=== PATIENT | female | born 1950 | race Caucasian/White ===

== ENCOUNTER 2021-04-25 07:47 | Outpatient (CLI) | payer MEDICARE, SELFPAY ==
--- NOTE | ~2021-04-25 | MR_ITS ---
EXAMINATION: MR knee LT wo con DATE: 04/25/2021 08:54 INDICATION: Primary osteoarthritis of the left knee. TECHNIQUE: Magnetic resonance imaging (MRI) of the left knee was performed without intravenous contra st. Sequences included coronal PD-weighted FSE, coronal PD-weighted FS FSE, sagittal T2-weighted FSE , sagittal PD-weighted FS FSE and axial PD weighted fat saturated FSE. COMPARISON: Left knee radiographs dated 12/04/2020 FINDINGS: Medial compartment: Medial extrusion of the medial meniscal body. Longitudinal horizontal tear which extends to the super ior articular surface along the inner third of the body and posterior horn of the medial meniscus. Ex tensive partial thickness cartilage loss with chondral surface irregularity along the anterior, centr al and to lesser degree posterior weightbearing medial femoral condyle without degenerative subchondr al changes. Additional partial thickness cartilage loss with chondral surface regularity at the centr al, anterior and medial aspect of the medial tibial plateau. Minimal subarticular increased marrow si gnal change along the anteromedial rim of the medial tibial plateau. Small marginal osteophytes are p resent. Lateral compartment: Small radial tear involving the inner third of the body of the lateral meniscus. In addition there ap pears be a small displaced flap of meniscus which extends into the medially between the anterior and posterior horns of the intercondylar eminence consistent with a displaced bucket-handle tear. Partial -thickness chondral fissuring along the anterior to posterior weightbearing lateral femoral condyle w ithout degenerative subchondral changes. Deep chondral ulceration with tiny central subchondral osteo phyte along the posterior medial aspect of the lateral tibial plateau. Patellofemoral compartment: Deep chondral ulceration with small central subchondral osteophytes at the cephalad aspect of the tro chlear groove and medial trochlea. Less severe partial thickness chondral fissuring along the lateral margin of the lateral trochlea. Partial thickness cartilage loss with scattered chondral surface irr egularity throughout the patella. Ligaments and tendons: The posterior cruciate ligament is normal. Prominent thickening and increased intrasubstance signal s urrounding the low signal intensity ligament fibers of the anterior cruciate ligament consistent with mucoid degeneration. Some of the ligament fibers appear relatively taut following a normal course re lative to the mid sagittal plane however there appears to be some laxity to the fibers of the postero lateral bundle suggesting partial tear. There is prominent chronic erosion with low signal intensity sclerotic margins underlying the footplate of the posterolateral bundle. The medial collateral ligame nt and fibular collateral ligament complex are normal. The extensor mechanism is normal. The visualiz ed medial and lateral hamstring tendons as well as the iliotibial band are normal. Fluid: Small left knee joint effusion. No loose osteochondral bodies identified. Osseous/other: Bone alignment is normal. No fracture or pathologic marrow replacing process. IMPRESSION: 1. Medial and lateral meniscal tears likely complex at the lateral meniscus suggestion of a small wit h medially displaced bucket-handle flap. 2. Mucoid degeneration of the anterior cruciate ligament with suggestion of at least partial tear of some of the fibers of the posterior medial bundle which appears lax and with large erosion underlying its femoral footplate. 3. Tricompartmental osteoarthritis, moderate in the medial and mild in the lateral and patellofemoral compartments, each with regions of moderate to high-grade chondromalacia. 4. Small left knee joint effusion. Reviewed, dictated and finalized at location A. Electr
== END 2021-04-25 07:48 | disposition home or self-care (01) ==
PROVIDERS: PCP Nurse Practitioner; Visit Provider Orthopaedic Surgery
DX: M17.0 Bilateral primary osteoarthritis of knee (principal); M25.462 Effusion, left knee; S83.282A Other tear of lateral meniscus, current injury, left knee, initial encounter; S83.242A Other tear of medial meniscus, current injury, left knee, initial encounter; X58.XXXA Exposure to other specified factors, initial encounter
CPT/HCPCS: 73721

== ENCOUNTER 2021-07-09 07:46 | Outpatient (CLI) | payer MEDICARE, SELFPAY ==
--- NOTE | 2021-07-09 08:00 | ECG_ITS ---
Measurements Intervals [place] Rate: 78 P: 53 PA: 154 QRS: -5 QRSD: 74 T: 48 QT: 361 QTc: 412 Interpretive Statements SINUS RHYTHM LOW QRS VOLTAGE IN PRECORDIAL LEADS [QRS DEFLECTION < 1.0 mV IN CHEST LEADS] BORDERLINE ECG NO PREVIOUS ECG AVAILABLE FOR COMPARISON Electronically Signed On 07-09-2021 12:20:59 CDT by Abdoulaye Loyola M.D.
== END 2021-07-09 07:47 | disposition home or self-care (01) ==
PROVIDERS: PCP Nurse Practitioner; Visit Provider Orthopaedic Surgery
DX: I10 Essential (primary) hypertension (principal); Z01.818 Encounter for other preprocedural examination
CPT/HCPCS: 93005

== ENCOUNTER → 2021-07-10 01:39 | Outpatient (CLI) | payer MEDICARE, SELFPAY ==
[2021-07-10 11:26] LABS: SARS-CoV-2 RNA PCR Negative
== END ==
PROVIDERS: PCP Nurse Practitioner; Visit Provider Orthopaedic Surgery
DX: Z01.812 Encounter for preprocedural laboratory examination (principal); Z20.822 Contact with and (suspected) exposure to COVID-19
CPT/HCPCS: C9803; U0003; U0005

== ENCOUNTER 2021-07-13 00:27 | Day surgery (SDC) | payer MEDICARE, SELFPAY ==
[2021-07-05 10:37] VITALS: BMI 24.1
--- NOTE | 2021-07-05 10:52 | PC.NURSE ---
Report to the Outpatient Waiting Room, entrance under the green pavilion located off [facility], at time _8:30AM on date __07/13/21 . OR Time: __10:30AM . - You and your visitor will be asked a series of questions to screen for COVID 19 for your protection. - A mask is required within the hospital. Preoperative COVID Testing Requirements: No COVID Test needed if: (proof is required; if not received patient will have Rapid Test prior to entry) - Patient has received COVID Vaccine at least 14 days prior to procedure date or - Patient has positive COVID test result within last 90 days of surgery date. COVID Test needed if above criteria is not met If not COVID vaccinated a COVID test must be conducted within 72 hours of surgery and patient is asked to isolate self from time of testing until procedure. You will go to the [facility] for your COVID testing. The [facility] is located at the corner of [address] [facility]. You will only be called if COVID results are positive and your surgeon may reschedule your elective surgery date. Patients may have clear liquids (water, carbonated beverages, clear teas, apple juice) until 3 hours prior to surgery with a maximum of 20 ounces. - No food from midnight until time of surgery - Infants may have breast milk until 4 hours before surgery, formula 6 hours prior to surgery. - Children will be allowed to drink immediately following surgery. If applicable, please bring a bottle or sippy cup to assist with drinking. Juice, water, soda, and popsicles are readily available. For infants on formula, please bring formula the day of surgery. Pacifiers are allowed. Take the following medications with a SIP of water the morning of surgery: ___NONE Medications to discontinue per physician ___ALL VITAMINS/SUPPLEMENTS 3 DAYS PRE-OP Date to take last dose____07/09/21 Please no make-up, nail welsh, hairspray, perfume, deodorant, or body powder the day of surgery. No jewelry (including any body piercings) or valuables the day of surgery, leave them at home. Please take a shower or bath the night before, or the morning of, surgery with an antibacterial soap. Wear comfortable, loose fitting clothing. Children are encouraged to wear pajamas. - Jewelry must be removed prior to entering the operating room. Rings and piercings that are not removed may be cut off. - The hospital will not accept responsibility for valuables. - Please leave all valuables, including medications, at home the day of surgery. If you are going home after surgery, a licensed deliver driver must drive you home. - NO public transportation without another adult. - We recommend that an adult stay with you for 24 hours following discharge. - We also recommend that you do not drive, make important decision, drink alcoholic beverages, or take any drugs that were not prescribed by your health care provider for at least 24 hours after your discharge time. For Pediatric surgeries, we recommend two adults accompany the child home (only one inside the building at this time). One visitor will be allowed to accompany the patient into the hospital. Patients visitor will be instructed to remain with patient at all times or leave the building. We will allow the visitor to come back to the postoperative area when patient is ready. Follow any additional instructions given to you from your surgeon. Telephone instructions given to __PATIENT and asked if any additional questions and then verbalized understanding. Patient advised to call surgeon office or pre surgery nurse liaison [phone] if any additional questions.
[2021-07-13] VITALS (9 sets, daily range): BP systolic 126–151; BP diastolic 50–96; PULSE 76–86; RESP 12–20; TEMP 36.1–36.7; O2SAT 98–100
--- NOTE | 2021-07-13 07:19 | WPDHPUPDATE1 ---
History and Physical Update Update Date/Time: 07/13/21 07:19 History and Physical has been reviewed, including an updated exam of the patient. There are NO changes in the patient's condition. Risks, benefits, and alternatives have been discussed and questions answered. Patient agrees to proceed with procedure.
--- NOTE | 2021-07-13 12:36 | P.PNAN_ITS ---
Anes - Initial Pre Proc Eval Procedure: Operation Date: 07/13/21 13:00 Proposed Procedures p Left Knee Arthroscopic Partial Medial and Lateral Meniscectomy - Jadiel Bolivar MD Date/Time: 07/13/21 12:36 Surgeon: Jadiel Bolivar MD Pre Op Diagnosis: Lt Medial and Lateral Meniscus Tear Patient Data Age: 71 Gender: F Height: 1.7 m Weight: 68.5 kg Last Vital Signs Temp 36.7 C 07/13/21 10:49 Pulse 86 07/13/21 10:49 Resp 18 07/13/21 10:49 BP 150/91 H 07/13/21 10:49 Pulse Ox 99 07/13/21 10:49 Allergies Allergy/AdvReac Type Severity Reaction Status Date / Time No Known Allergies Allergy Verified 07/13/21 11:22 Home Medications Medication Instructions Recorded Confirmed Type lisinopril 20 mg tablet 20 mg PO QAM 08/14/20 07/13/21 History Quercetin 500 mg PO DAILY 07/05/21 07/13/21 History ascorbic acid (vitamin C) 500 mg PO BID 07/05/21 07/13/21 History cholecalciferol (vitamin D3) 125 mcg PO DAILY 07/05/21 07/13/21 History coenzyme Q10 [Co Q-10] 200 mg PO DAILY 07/05/21 07/13/21 History cyanocobalamin (vitamin B-12) 5,000 mcg PO DAILY 07/05/21 07/13/21 History ivermectin See Rx Instructions .ROUTE .COMPLEX 07/05/21 07/13/21 History melatonin 6 mg PO HS 07/05/21 07/13/21 History azlsiuv-nynn-tpvtb-oreg-capryl 1 cap PO TID 07/05/21 07/13/21 History zinc picolinate 30 mg PO DAILY 07/05/21 07/13/21 History Patient hx anesthesia problems: none Family hx anesthesia problems: none Results Review: All pre-operative results and documents have been reviewed as part of the pre-operative evaluation. [facility] Social History Social History Smoking status: Never smoker Alcohol intake: current Drinks per week: 7 Substance use: never Living arrangements: with family Additional living arrangements comments: HUSB AND DAUGHTER Spiritual care concerns: No Anes - Eval Final PreProcedure Day of Procedure 07/13/21 12:36 Patient weight: normal Heart: regular rate and rhythm Lungs: clear to auscultation Airway: Mallampati scale class II Neurological: alert and oriented Last oral intake: >/= 8 hours ASA classification: II Emergent: no Anesthetic plan: proceed Anesthesia type and monitoring: general LMA and standard monitoring Results Review: All pre-operative results and documents have been reviewed as part of the pre-operative evaluation. Informed Consent: The patient's anesthetic plan and its attendant risks and benefits were discussed with the patient/family/POA. Questions were solicited and answers provided to the satisfaction of the patient/family/POA.
[2021-07-13] MEDS: ceFAZolin 2 GM/D5W 50 ML 2 GM/50 ML BAG IVPB (13:09)
[2021-07-13] MEDS: LACTATED RINGERS 1,000 ML 30 ML IV CONT ×2 (13:57)
--- NOTE | 2021-07-13 15:40 | P.OP_ITS ---
Procedure Note - Detailed Date of Procedure 07/13/21 Pre-op Diagnosis Lt Medial and Lateral Meniscus Tear Post-op Diagnosis Same Procedure Performed Arthroscopic partial medial and lateral meniscectomy Surgeon Jadiel Bolivar MD Mechanical Manager Erinn Souza PA-C Anesthesia General Findings Degenerative tearing of the medial meniscus. The tissue was quite friable and significant meniscectomy through the posterior medial aspect posterior horn and medially was performed. The lateral meniscus had a modest tear. Medial femur chondromalacia grade 4, medial tibia grade 4. Lateral femur chondromalacia grade 1, lateral tibia grade 1. Patellar grade 3, trochlea grade 3. Description of Procedure The patient was identified and the surgical site confirmed and signed in the preoperative holding area. Antibiotics were started per protocol. She was brought to the operative room and transferred to the OR table. A general anesthetic was administered. Supine position with the operative lower extremity position in the leg reyez after placement of a well padded tourniquet. The leg support was lowered and the contralateral limb was supported with a soft bolster. The knee was prepped and draped in the usual sterile fashion. A time-o ut was performed. The portal sites were marked and infiltrated with 0.5% Marcaine 20 mL. The limb was exsanguinated and the tourniquet inflated to 300 mL Hg. Standard inferolateral and inferomedial portals were established. Inflow was obtained with the saline pump. The camera was introduced. Diagnostic inspection of the joint was accomplished. The menisci were debrided with the arthroscopic shaver and punches until stable. The arthroscopic instruments were removed. The tourniquet released and wounds closed with subcutaneous 4-0 Monocryl absorbable suture. Steri strips and a sterile dressing were applied. A light elastic wrap was placed. The patient was extubated and brought to the recovery room in stable condition. Estimated Blood Loss -5.0 Drains No Complications No immediate complications Condition Stable Disposition PACU
== END 2021-07-13 15:35 | disposition home or self-care (01) ==
PROVIDERS: PCP Nurse Practitioner; Visit Provider Orthopaedic Surgery
PROC: (CPT 29870; principal; 2021-07-13 13:00)
DX: M23.222 Derangement of posterior horn of medial meniscus due to old tear or injury, left knee (principal); M23.201 Derangement of unspecified lateral meniscus due to old tear or injury, left knee; M22.42 Chondromalacia patellae, left knee; M25.562 Pain in left knee; M17.12 Unilateral primary osteoarthritis, left knee
CPT/HCPCS: 29880; J0690; J1100; J2250; J2405; J2704; J3010; J7120

== ENCOUNTER 2022-01-04 13:56 | Outpatient (CLI) | payer MEDICARE, SELFPAY ==
--- NOTE | ~2022-01-04 | CT_ITS ---
EXAMINATION: CT LE LT wo con DATE: 01/04/2022 15:07 INDICATION: Left knee osteoarthritis. Chronic left knee pain. TECHNIQUE: Computed tomography (CT) of the left lower limb was performed without intravenous contrast . Automated exposure control and iterative reconstruction technique were employed. The dose-length pr oduct was 1754.45 mGy-cm. COMPARISON: Left knee radiographs 12/06/2021 FINDINGS: There is moderate left hip osteoarthritis. Left knee demonstrates normal bone alignment. No fracture. There is moderate osteoarthritis of medial compartment and mild osteoarthritis of lateral and patellofemoral compartments. There is a moderate-sized knee joint effusion. IMPRESSION: 1. Moderate left knee osteoarthritis. 2. Moderate-sized left knee joint effusion. 3. Moderate left hip osteoarthritis. Reviewed, dictated and finalized at location A.
--- NOTE | 2022-01-04 13:58 | ECG_ITS ---
Measurements Intervals [place] Rate: 67 P: 23 ND: 142 QRS: 13 QRSD: 73 T: 68 QT: 402 QTc: 425 Interpretive Statements SINUS RHYTHM ATRIAL PREMATURE COMPLEX BASELINE WANDER- I, II BORDERLINE ECG COMPARED TO ECG 07/09/2021 07:59:53 NO SIGNIFICANT CHANGES Electronically Signed On 01-04-2022 14:37:17 CDT by Kuldip Espana D.O.
[2022-01-04 14:32] LABS: Hematocrit 41.1 % (37.0-47.0); Hemoglobin 13.4 g/dL (12.0-15.0)
[2022-01-04 14:41] LABS: Albumin Level 4.2 g/dL (3.5-5.1); Estimated Glomerular Filt Rate > 60
== END 2022-01-04 13:57 | disposition home or self-care (01) ==
LOC: ANHIMG 13:58
PROVIDERS: PCP Nurse Practitioner; Visit Provider Orthopaedic Surgery
DX: M17.12 Unilateral primary osteoarthritis, left knee (principal); M25.462 Effusion, left knee; M16.12 Unilateral primary osteoarthritis, left hip
CPT/HCPCS: 36415; 73700; 82040; 82565; 85014; 85018; 93005

== ENCOUNTER 2022-02-25 11:53 | Outpatient (CLI) | payer MEDICARE, SELFPAY ==
[2022-02-25 13:20] LABS: Basophils Percent Auto 0.6 % (0.2-1.2); Eosinophils Absolute Auto 0.4 K/mm3 (0-0.3); Eosinophils Percent Auto 5.7 % (0-4.4); Hemoglobin 13.8 g/dL (12.0-15.0); Immature Granulocyte Absolute 0.03 K/mm3 (0.00-0.031); Immature Granulocyte Percent A 0.5 % (0-0.5); Lymphocytes Absolute Auto 1.59 K/mm3 (0.9-3.2); Lymphocytes Percent Auto 25.2 % (18.3-44.2); Mean Corpuscular HGB Conc 32.9 g/dl (32-36); Mean Corpuscular Hemoglobin 31.2 pg (26-34); Mean Corpuscular Volume 94.8 fl (80-100); Mean Platelet Volume 9.5 fl (7.4-10.4); Monocytes Absolute Auto 0.5 K/mm3 (0.1-0.6); Monocytes Percent Auto 8.6 % (2.6-8.5); Neutrophils Absolute Auto 3.8 K/mm3 (1.3-6.7); Neutrophils Percent Auto 59.4 % (45.5-73.1); Platelet Count Result 255 k/mm3 (150-375); Red Blood Count 4.43 M/mm3 (4.2-5.4); Red Cell Distribution Width 12.8 % (11.5-14.5); White Blood Count 6.3 K/mm3 (4.5-10.0)
[2022-02-25 13:37] LABS: Albumin Level 4.5 g/dL (3.5-5.1); Estimated Glomerular Filt Rate > 60; Glucose 97 mg/dL (65-110)
[2022-02-25 13:50] LABS: Urine Cotinine NEGATIVE
[2022-02-25 14:02] LABS: Hemoglobin A1C 5.3 % (<5.7)
== END 2022-02-25 11:54 | disposition home or self-care (01) ==
LOC: ANHSURGERY 11:58
PROVIDERS: PCP Nurse Practitioner; Visit Provider Orthopaedic Surgery
DX: M17.12 Unilateral primary osteoarthritis, left knee (principal); Z01.818 Encounter for other preprocedural examination
CPT/HCPCS: 80307; 82040; 82565; 82947; 83036; 85025; 87081

== ENCOUNTER 2022-03-14 01:19 | Day surgery (SDC) | payer MEDICARE, SELFPAY ==
[2022-02-25 12:11] VITALS: BP 151/82; PULSE 72; RESP 16; TEMP 36.2; O2SAT 97; BMI 24.3
--- NOTE | 2022-02-25 12:21 | PC.NURSE ---
Addendum entered by Faviola Del Valle RN 02/25/22 12:29: HOLD ALL ASPIRIN 7 DAYS KS-OP PER DR MOODY, LAST DOSE 03/07/22. PT RELAYS UNDERSTANDING. Original Note: Report to the Outpatient Waiting Room, entrance under the green pavilion located off [facility], at time __6:00AM on date __03/14/22 . Planned Procedure Time: __7:30AM . Time changes happen often and if your time is changed the preop area will call you the afternoon before. - You and your visitor will be asked to self-screen and do not enter if you have any COVID symptoms. - We encourage only one visitor and NO visitors under age 16 are allowed at this time. Your visitor will receive communication by the phone number that is given day of service. - The patient visitor is requested to social distance or may leave the building when not with patient due to restrictions. - A mask is required within the hospital. Patients may have clear liquids (water, carbonated beverages, clear teas, apple juice) until 3 hours prior to surgery with a maximum of 20 ounces. - No food from midnight until time of surgery Take the following medications with a SIP of water the morning of surgery: ____NONE Medications to discontinue per physician ___HOLD ALL VITAMINS/SUPPLEMENTS 7 DAYS PRE-OP PER DR MOODY Date to take last dose___03/07/22 Please no make-up, nail persian, hairspray, perfume, deodorant, or body powder the day of surgery. No jewelry (including any body piercings) or valuables the day of surgery, leave them at home. Please take a shower or bath the night before, or the morning of, surgery with an antibacterial soap. Wear comfortable, loose fitting clothing. Children are encouraged to wear pajamas. - Jewelry must be removed prior to entering the operating room. Rings and piercings that are not removed may be cut off. - The hospital will not accept responsibility for valuables. - Please leave all valuables, including medications, at home the day of surgery. If you are going home after surgery, a licensed shuttle van driver must drive you home. - NO public transportation without another adult. - We recommend that an adult stay with you for 24 hours following discharge. - We also recommend that you do not drive, make important decision, drink alcoholic beverages, or take any drugs that were not prescribed by your health care provider for at least 24 hours after your discharge time. Follow any additional instructions given to you from your surgeon. If you or anyone in your household have experienced Covid symptoms in the past week, please notify your surgeon or the nurse liaison at the phone number below for possible testing. Telephone instructions given to __PATIENT and asked if any additional questions and then verbalized understanding. Patient advised to call surgeon office or pre surgery nurse liaison [phone] if any additional questions.
--- NOTE | 2022-03-13 17:13 | WPDANESEPPF ---
Anes - Initial Pre Proc Eval Procedure: Operation Date: 03/14/22 07:30 Proposed Procedures p Left Custom Total Knee Arthroplasty - Jadiel Bolivar MD Date/Time: 03/13/22 17:13 Surgeon: Jadiel Bolivar MD Pre Op Diagnosis: primary OA left knee Patient Data Age: 72 Gender: F Height: 1.7 m Weight: 70.3 kg Last Vital Signs Temp 36.2 C L 02/25/22 12:11 Pulse 72 02/25/22 12:11 Resp 16 02/25/22 12:11 BP 151/82 H 02/25/22 12:11 Pulse Ox 97 02/25/22 12:11 O2 Del Method Room Air 02/25/22 12:11 Allergies Allergy/AdvReac Type Severity Reaction Status Date / Time No Known Allergies Allergy Verified 02/25/22 12:05 Home Medications Medication Instructions Recorded Confirmed Type lisinopril 20 mg tablet 20 mg PO QAM 08/14/20 02/26/22 History ascorbic acid (vitamin C) 500 mg 500 mg PO BID 07/05/21 02/26/22 History capsule cholecalciferol (vitamin D3) 125 125 mcg PO DAILY 07/05/21 02/26/22 History mcg (5,000 unit) tablet coenzyme Q10 200 mg capsule (Co 200 mg PO DAILY 07/05/21 02/26/22 History Q-10) cyanocobalamin (vitamin B-12) 5,000 mcg PO DAILY 07/05/21 02/26/22 History 5,000 mcg capsule melatonin 3 mg capsule 6 mg PO HS 07/05/21 02/26/22 History tumeric 100 mg-glen 150 mg-olive 1 cap PO BID 07/05/21 02/26/22 History 50 mg-oreg 150 mg-caprylate capsule zinc picolinate 25 mg capsule 30 mg PO DAILY 07/05/21 02/26/22 History aspirin 325 mg tablet 650 mg PO BID 02/25/22 02/25/22 History quercetin 500 mg capsule 500 mg PO DAILY 02/25/22 02/25/22 History Patient hx anesthesia problems: none Family hx anesthesia problems: none Results Review: All pre-operative results and documents have been reviewed as part of the pre-operative evaluation. [facility] Past Medical History Medical History (Updated 03/13/22 @ 17:14 by Sherman Drummond MD) Osteoarthritis Social History Social History Smoking status: Never smoker Alcohol intake: current Drinks per week: 7 Substance use: never Lack of Transportation: No Lack of Food: Never True Current Housing: Decline to Answer Concerned About Future Housing: No Difficulty Paying Gas/Electric Bills: No Difficulty Paying for Meds: No Currently Unemployed: No Education: High School Diploma/GED Difficulty w/ Childcare or Family Care: No Living arrangements: with family Additional living arrangements comments: SPOUSE AND DAUGHTER Spiritual care concerns: No Anes - Eval Final PreProcedure Day of Procedure 03/13/22 17:13 Patient weight: normal Heart: regular rate and rhythm Lungs: clear to auscultation Airway: Mallampati scale class II Neurological: alert and oriented Last oral intake: >/= 8 hours ASA classification: II Emergent: no Anesthetic plan: proceed Anesthesia type and monitoring: general LMA and standard monitoring Results Review: All pre-operative results and documents have been reviewed as part of the pre-operative evaluation. Informed Consent: The patient's anesthetic plan and its attendant risks and benefits were discussed with the patient/family/POA. Questions were solicited and answers provided to the satisfaction of the patient/family/POA.
--- NOTE | 2022-03-13 17:14 | WPDANESPNB ---
Anes - Peripheral Nerve Block Date/Time: 03/13/22 17:14 I have discussed with the patient/family/POA the placement of a peripheral nerve block for post-operative pain management, including associated risks, benefits, complications, and side effects. Alternative methods of post-operative analgesia were detailed. Questions were solicited and answers provided to the satisfaction of the patient/family/POA. Time-Out: A pre-procedural Time-Out was completed immediately before starting the procedure and confirmed: Patient Identification, Site, Procedure, Patient Position and the Availability of Requisite Equipment. Clinical Indications: Acute post-operative pain management requested by the operative surgeon. Nerve Block Insertion Note Anes-nerve block: adductor canal left Patient position: supine Skin prep: chlorhexidine Needle: 22 gauge, stimulating, insulated echogenic needle. Needle length: 80 mm Technique: ultrasound Technique comment: in plane Injectate: bupivacaine 0.25% with epi 5 mcg/ml (30cc) Observations: tolerated well Complications: none Procedure start time:: 725 Procedure end time:: 730
[2022-03-14] VITALS (13 sets, daily range): BP systolic 102–152; BP diastolic 57–93; PULSE 74–97; RESP 10–18; TEMP 36.4–37.1; O2SAT 97–100
--- NOTE | ~2022-03-14 | XR_ITS ---
EXAMINATION: XR knee LT 2V DATE: 03/14/2022 10:41 INDICATION: Total left knee arthroplasty. Postop. TECHNIQUE: 2 views of left knee were obtained. COMPARISON: Left knee radiographs 12/06/2021 FINDINGS: There is a total left knee arthroplasty with patellar resurfacing in near-anatomic alignmen t. No fracture. There is gas in the knee joint and soft tissues, consistent with recent surgery. IMPRESSION: 1. Total left knee arthroplasty in near-anatomic alignment. Reviewed, dictated and finalized at location A. ING PLASTERER
[2022-03-14] MEDS: ACETAMINOPHEN 500 MG TABLET 1000 MG PO (06:29)
[2022-03-14] MEDS: LACTATED RINGERS 1,000 ML 30 ML IV CONT ×2 (06:30→11:30)
[2022-03-14] MEDS: TRANEXAMIC ACID 1,000MG/ISO100 1,000 MG/100 ML BAG 200 MG IVPB (06:40)
--- NOTE | 2022-03-14 07:19 | WPDHPUPDATE1 ---
History and Physical Update Update Date/Time: 03/14/22 07:19 History and Physical has been reviewed, including an updated exam of the patient. There are NO changes in the patient's condition. Risks, benefits, and alternatives have been discussed and questions answered. Patient agrees to proceed with procedure.
[2022-03-14] MEDS: ceFAZolin 2 GM/D5W 50 ML 2 GM/50 ML BAG IVPB ×3 (07:40→22:59)
[2022-03-14] MEDS: GENTAMICIN BONE CEMENT REFOBACIN 1 EACH TOPICAL (08:24)
--- NOTE | 2022-03-14 10:26 | W.PM.PROC2 ---
Procedure Note - Detailed Date of Procedure 03/14/22 Pre-op Diagnosis primary OA left knee Post-op Diagnosis Same Procedure Performed Total knee arthroplasty, left Surgeon Jadiel Bolivar MD Anesthesia General and Regional (Subsartorial block.) Findings Good bone quality Extensive degenerative changes. PCLrelease release only only. Description of Procedure Preoperative antibiotics were given. The limb was prepped and draped in the usual sterile fashion with a well-padded tourniquet high on the thigh. The limb was exsanguinated and the tourniquet inflated to 300 mmHg. A longitudinal incision was created just medial to the patella. A trivector approach to the knee was performed. Arthrotomy was taken down through the joint capsule. No significant releases were initially taken. The femur was exposed and the F1 jig was applied. The coring tool was used to remove the cartilage for the F2 jig to sit flush with the bone. The jig was pinned and the distal cut carefully taken. Caliper measurements confirmed appropriate bony resections according to the preoperative templated plan. The F4 cutting jig for the femur was applied, at the standard rotation. The AP and anterior chamfer cuts were taken. The F5 jig was applied and the posterior chamfer cuts were taken. The tibia was prepared using the T1 jig, after removing cartilage for the jig contact points. Proper alignment was checked with the alignment carl. The tibia was cut using the T1u guide. Gap balancing was performed. Gap measurements were taken and the knee was trialed. Excellent alignment and soft tissue balancing was confirmed. The posterior cruciate ligament was recessed along the proximal tibia. The patella was cut for resurfacing. Three lug holes were drilled. Meniscal remnants were removed. The trial components were assembled. Excellent range of motion and proper soft tissue balancing were confirmed throughout the full range of motion. Patellar tracking was excellent. The knee was copiously irrigated periodically throughout the procedure. The real implants were cemented into position. Excess cement was carefully removed. The wound was closed in layers with interrupted #1 Vicryl suture, 2-0 strata fix suture, 0 strata fix suture, 2-0 strata fix suture. Steri-Strips placed on the skin with the knee flexed. Sterile bulky dressing applied. The patient was brought to the recovery room in stable condition. There were no complications. Implants Conformis Imprint total knee arthroplasty. Cemented. Cruciate retaining. 7mm insert. 32 mm round patella. Estimated Blood Loss 1 Tourniquet Time 100 Drains No Complications No immediate complications Condition Stable Disposition PACU [facility] Billing Surgery - Charge Forward: Surgery Billing
--- NOTE | 2022-03-14 12:10 | SUR.PHASEI ---
PATIENT STABLE AND READY FOR TRANSFER TO INPT ROOM. NO ROOMS AVAILABLE, PATIENT WILL BE HELD IN RECOVERY AREA. PATIENT CARE TRANSFERRED TO IRV[facility] EATON
--- NOTE | 2022-03-14 12:26 | SUR.PHASEI ---
kirsten cates brought pt over to pre op area until a bed opens up upstairs. diet and pt/ot has been started.
[2022-03-14] MEDS: ONDANSETRON INJ 4 MG/2 ML VIAL IV PUSH ×2 (14:02→17:09)
--- NOTE | 2022-03-14 14:28 | SUR.PHASEI ---
pt brought to preop rm #7 around 1215 for holding until room open up on floor.
--- NOTE | 2022-03-14 14:48 | SUR.PHASEI ---
report given to floor rn. taking pt up stairs now.
--- NOTE | 2022-03-14 15:00 | ADMGEN ---
This patient, Sisi Rodriguez, was admitted to Medical Room 243-01. Patient/family oriented to hospital policies and general routines including ID bracelet, bed and alarms, visiting hours, pain management, procedures, bathroom and other care routines, personal items, smoking policy, room service/diet, and visiting hours. Information on how to activate the Rapid Response Team has been discussed. Patient/Family are encouraged to report perceived risks to care and to ask questions if they do not understand what they are told or what they should do.
[2022-03-14] MEDS: SODIUM CHLORIDE 0.9% IV 1,000 ML 125 ML IV CONT (15:54)
[2022-03-14] MEDS: SENNA/DOCUSATE SODIUM TABLET 2 TAB PO (16:36)
[2022-03-14] MEDS: ASCORBIC ACID 500 MG TABLET PO (16:36)
[2022-03-14] MEDS: MELOXICAM 7.5 MG TABLET PO (16:37)
[2022-03-14] MEDS: ASPIRIN 81 MG ENTERIC TABLET PO (16:37)
[2022-03-14] MEDS: MELATONIN 3 MG TABLET 6 MG PO (21:29)
[2022-03-14] MEDS: FAMOTIDINE 20 MG TABLET PO (21:29)
[2022-03-14] MEDS: oxyCODONE HCL (*CRX) 5 MG TAB IR PO (21:32)
[2022-03-15] MEDS: oxyCODONE HCL (*CRX) 5 MG TAB IR PO ×3 (03:23→12:39)
[2022-03-15 03:55] VITALS: BP 114/67; PULSE 72; RESP 18; TEMP 36.6; O2SAT 100
[2022-03-15] MEDS: ONDANSETRON INJ 4 MG/2 ML VIAL IV PUSH (05:18)
[2022-03-15] MEDS: ceFAZolin 2 GM/D5W 50 ML 2 GM/50 ML BAG IVPB (06:02)
[2022-03-15 06:19] LABS: Anion Gap 6 mmol/L (8-16); Basophils Percent Auto 0.3 % (0.2-1.2); Blood Urea Nitrogen 19 mg/dL (7-17); Calcium 8.4 mg/dL (8.4-10.2); Carbon Dioxide 26 mmol/L (22-30); Chloride 105 mmol/L (98-107); Eosinophils Percent Auto 0.4 % (0-4.4); Estimated CRCL calculation 55 ml/min; Estimated Glomerular Filt Rate > 60; Glucose 116 mg/dL (65-110); Hematocrit 32.8 % (37.0-47.0); Hemoglobin 10.6 g/dL (12.0-15.0); Immature Granulocyte Absolute 0.05 K/mm3 (0.00-0.031); Immature Granulocyte Percent A 0.6 % (0-0.5); Lymphocytes Absolute Auto 0.84 K/mm3 (0.9-3.2); Lymphocytes Percent Auto 9.4 % (18.3-44.2); Mean Corpuscular HGB Conc 32.3 g/dl (32-36); Mean Corpuscular Hemoglobin 31.5 pg (26-34); Mean Corpuscular Volume 97.6 fl (80-100); Mean Platelet Volume 10.1 fl (7.4-10.4); Monocytes Percent Auto 10.9 % (2.6-8.5); Neutrophils Percent Auto 78.4 % (45.5-73.1); Platelet Count Result 207 k/mm3 (150-375); Potassium 4.3 mmol/L (3.4-5.0); Red Blood Count 3.36 M/mm3 (4.2-5.4); Red Cell Distribution Width 12.8 % (11.5-14.5); Sodium 137 mmol/L (137-145); White Blood Count 8.9 K/mm3 (4.5-10.0)
[2022-03-15] MEDS: PROMETHAZINE HCL 25 MG/ML AMPUL 12.5 MG IV PUSH (07:03)
[2022-03-15 08:35] VITALS: BP 115/65; PULSE 68; RESP 18; TEMP 36.7; O2SAT 100
[2022-03-15] MEDS: CYANOCOBALAMIN 1,000 MCG TABLET 5000 MCG PO (08:38)
[2022-03-15] MEDS: CHOLECALCIFEROL 1,000 UNITS TABLET 5000 UNITS PO (08:39)
[2022-03-15] MEDS: polyethylene glycoL 3350 17 GM POWD.PACK PO (08:39)
[2022-03-15] MEDS: MELOXICAM 7.5 MG TABLET PO (08:40)
[2022-03-15] MEDS: SENNA/DOCUSATE SODIUM TABLET 2 TAB PO (08:40)
[2022-03-15] MEDS: ASCORBIC ACID 500 MG TABLET PO (08:40)
[2022-03-15] MEDS: predniSONE 5 MG TABLET PO (08:40)
[2022-03-15] MEDS: lisinopriL 20 MG TABLET PO (08:40)
[2022-03-15] MEDS: ASPIRIN 81 MG ENTERIC TABLET PO (08:40)
[2022-03-15] MEDS: FAMOTIDINE 20 MG TABLET PO (08:40)
--- NOTE | 2022-03-15 11:17 | P.PNAN_ITS ---
Anes - Prog Note Post-Op Date/Time: 03/15/22 11:17 Cardiovascular status: normal Respiratory status: normal Airway patency: baseline Mental status: baseline Post-Op hydration status: normal Vital Signs: Last Vital Signs Temp 36.7 C 03/15/22 08:35 Pulse 68 03/15/22 08:35 Resp 18 03/15/22 08:35 BP 115/65 03/15/22 08:35 Pulse Ox 100 03/15/22 08:35 O2 Del Method Room Air 03/14/22 13:49 O2 Flow Rate 8 03/14/22 10:35 Pain Score (VAS): 0 I/O: Intake & Output 03/14/22 03/15/22 03/15/22 23:59 07:59 15:59 Intake Total 400 1400 360 Output Total 400 Balance 400 1000 360 Laboratory Tests 03/15/22 05:00 03/15/22 05:00 03/15/22 03/15/22 05:00 05:00 WBC 8.9 RBC 3.36 L Hgb 10.6 L D Hct 32.8 L MCV 97.6 MCH 31.5 MCHC 32.3 RDW 12.8 Plt Count 207 MPV 10.1 Immature Gran % (Auto) 0.6 H Neut % (Auto) 78.4 H Lymph % (Auto) 9.4 L [place] % (Auto) 10.9 H Eos % (Auto) 0.4 Baso % (Auto) 0.3 Lymph # (Auto) 0.84 L [place] # (Auto) 1.0 H Eos # (Auto) 0.0 Baso # (Auto) 0.0 Abs Immat Gran (auto) 0.05 H Absolute Neuts (auto) 7.0 H Absolute Nucleated RBC 0.0 Nucleated RBC % 0.0 Sodium 137 Potassium 4.3 Chloride 105 Carbon Dioxide 26 Anion Gap 6 L BUN 19 H Creatinine 0.80 Estim Creat Clear Calc 55 Estimated GFR > 60 Glucose 116 H Calcium 8.4 Post-procedural complaints: nausea Patient Feedback: Patient satisfied with anesthetic care.
--- NOTE | 2022-03-15 13:13 | PM.DS ---
DS: Admitting Diagnosis Discharge Date 03/15/22 Admitting Diagnosis Left knee arthritis. DS: Discharge Diagnosis Discharge Diagnosis (1) Status post total knee replacement, left: Code(s): Z96.652 - Presence of left artificial knee joint Status: Acute DS: Summary Hospital Course Reason for hospitalization: Total knee arthroplasty. Hospital Course: Tolerated surgery well. Progressed appropriately with therapy. Status at Discharge Functional status at discharge: uses cane/walker Overall status at discharge: patient is progressing back to baseline Time Spent with Patient Time attestation: Total time spent providing and/or coordinating discharge services: Exam Const: General: no acute distress Resp: Effort & Inspection: normal respiratory effort Skin: Other: Wound healing well. Mepilex dressing intact. No hematoma or drainage. Neuro: Motor exam (neuro): 5/5 motor strength present throughout Sensory Exam: normal sensation Psych: Mental Status: mental status grossly normal Speech and movement: Normal speech and movement present DS: Data Data Completed and Pending Labs on day of discharge: Labs from last 24 hours 03/15/22 03/15/22 05:00 05:00 WBC 8.9 RBC 3.36 L Hgb 10.6 L D Hct 32.8 L MCV 97.6 MCH 31.5 MCHC 32.3 RDW 12.8 Plt Count 207 MPV 10.1 Immature Gran % (Auto) 0.6 H Neut % (Auto) 78.4 H Lymph % (Auto) 9.4 L [place] % (Auto) 10.9 H Eos % (Auto) 0.4 Baso % (Auto) 0.3 Lymph # (Auto) 0.84 L [place] # (Auto) 1.0 H Eos # (Auto) 0.0 Baso # (Auto) 0.0 Abs Immat Gran (auto) 0.05 H Absolute Neuts (auto) 7.0 H Absolute Nucleated RBC 0.0 Nucleated RBC % 0.0 Sodium 137 Potassium 4.3 Chloride 105 Carbon Dioxide 26 Anion Gap 6 L BUN 19 H Creatinine 0.80 Estim Creat Clear Calc 55 Estimated GFR > 60 Glucose 116 H Calcium 8.4 Discharge Plan Discharge Patient Disposition: Home, Self-Care Discharge Instructions: See instruction sheet. Stand Alone Forms: General Discharge Instructions Follow-up/Referrals: Jadiel Bolivar MD [Physician] - Discharge Medications: New meloxicam 7.5 mg tablet 7.5 mg PO .twice daily Qty: 60 0RF oxycodone-acetaminophen 5-325 mg tablet 1 - 2 tablet PO Q4-6H MDD 6 tablets PRN (Reason: pain) Qty: 30 0RF Continued lisinopril 20 mg tablet 20 mg PO QAM zinc picolinate 25 mg Capsule 30 mg PO DAILY coenzyme Q10 [Co Q-10] 200 mg Capsule 200 mg PO DAILY cholecalciferol (vitamin D3) 125 mcg (5,000 unit) Tablet 125 mcg PO DAILY ascorbic acid (vitamin C) 500 mg Capsule 500 mg PO BID cyanocobalamin (vitamin B-12) 5,000 mcg Capsule 5,000 mcg PO DAILY melatonin 3 mg Capsule 6 mg PO HS irfvvuk-yrkp-cwaxh-oreg-capryl 100 mg-150 mg- 50 mg-150 mg Capsule 1 cap PO BID quercetin 500 mg Capsule 500 mg PO DAILY aspirin 325 mg Tablet 650 mg PO BID Quality VTE Prophylaxis VTE prophylaxis: mechanical ordered (NAWAF claros and Shira)
== END 2022-03-15 14:30 | disposition home or self-care (01) ==
LOC: ANHSURGERY 05:48 → ANH2MED 14:53
PROVIDERS: PCP Nurse Practitioner; Visit Provider Orthopaedic Surgery
PROC: (CPT 27447; principal; 2022-03-14 07:30)
DX: M17.12 Unilateral primary osteoarthritis, left knee (principal); G89.18 Other acute postprocedural pain; Z79.82 Long term (current) use of aspirin
CPT/HCPCS: 27447; 64447; 36415; 73560; 80048; 85025; 86850; 86900; 86901; 97110; 97116; 97161; 97165; 97530; 97535; A9270; C1713; C1776; J0131; J0171; J0690; J1100; J1170; J1885; J2250; J2270; J2405; J2550; J2704; J2795; J3010; J7030; J7120; J7512

== ENCOUNTER 2022-10-16 06:19 | Day surgery (SDC) | payer MEDICARE, SELFPAY ==
--- NOTE | 2022-10-09 08:13 | PC.NURSE ---
Report to the Outpatient Waiting Room, entrance under the green pavilion located off [facility], at time _0800 on date ___10/16/22____. Planned Procedure Time: _0900 . Time changes happen often and if your time is changed the preop area will call you the afternoon before. - You and your visitor will be asked to self-screen and do not enter if you have any COVID symptoms. - A mask is optional within the hospital at this time. Patients may have clear liquids (water, carbonated beverages, clear teas, apple juice) until 3 hours prior to surgery with a maximum of 20 ounces. - No food from midnight until time of surgery - Infants may have breast milk until 4 hours before surgery, formula 6 hours prior to surgery. - Children will be allowed to drink immediately following surgery. If applicable, please bring a bottle or sippy cup to assist with drinking. Juice, water, soda, and popsicles are readily available. For infants on formula, please bring formula the day of surgery. Pacifiers are allowed. LIGHT BREAKFAST MORNING OF SURGERY Take the following medications with a SIP of water the morning of surgery: MAY TAKE ALL ROUTINE MORNING MEDICATIONS DO NOT STOP ANY OF YOUR OTHER PRESCRIPTION MEDICATIONS PRIOR TO SURGERY ?EXCEPT THE FOLLOWING Medications to discontinue per physician ____ASPIRIN 7 DAYS PRE OP PER DR MOODY. LAST DOSE 10/08/22 Please no make-up, nail urdu, hairspray, perfume, deodorant, or body powder the day of surgery. No jewelry (including any body piercings) or valuables the day of surgery, leave them at home. Please take a shower or bath the night before, or the morning of, surgery with an antibacterial soap. Wear comfortable, loose fitting clothing. Children are encouraged to wear pajamas. - Jewelry must be removed prior to entering the operating room. Rings and piercings that are not removed may be cut off. - The hospital will not accept responsibility for valuables. - Please leave all valuables, including medications, at home the day of surgery. LOCAL ANESTHETIC-MAY DRIVE YOURSELF HOME If you are going home after surgery, a licensed route salesman and driver must drive you home. - NO public transportation without another adult if you receive anesthesia. - We recommend that an adult stay with you for 24 hours following discharge. - We also recommend that you do not drive, make important decision, drink alcoholic beverages, or take any drugs that were not prescribed by your health care provider for at least 24 hours after your discharge time. Follow any additional instructions given to you from your surgeon. If you or anyone in your household have experienced Covid symptoms in the past week, please notify your surgeon or the nurse liaison at the phone number below for possible testing. Telephone instructions given to __PATIENT and asked if any additional questions and then verbalized understanding. Patient advised to call surgeon office or pre surgery nurse liaison [phone] if any additional questions.
[2022-10-09 08:19] VITALS: BMI 23.0
[2022-10-16 07:51] VITALS: BP 160/86; PULSE 82; RESP 16; TEMP 36.5; O2SAT 99
--- NOTE | 2022-10-16 08:28 | WPDHPUPDATE1 ---
History and Physical Update Update Date/Time: 10/16/22 08:28 History and Physical has been reviewed, including an updated exam of the patient. There are NO changes in the patient's condition. Risks, benefits, and alternatives have been discussed and questions answered. Patient agrees to proceed with procedure.
[2022-10-16] MEDS: ACETAMINOPHEN 500 MG TABLET 1000 MG PO (08:32)
--- NOTE | 2022-10-16 08:52 | W.PM.PROC2 ---
Procedure Note - Detailed Date of Procedure 10/16/22 Pre-op Diagnosis left middle trigger finger Post-op Diagnosis Same Procedure Performed Left middle finger trigger finger release. Surgeon Jadiel Bolivar MD Anesthesia Local Description of Procedure The hand was prepped and draped in the usual sterile fashion with a tourniquet was applied to the arm and well-padded. The limb was exsanguinated and the tourniquet inflated to 250 millimeters of mercury. 0.25% Marcaine with epinephrine was injected at the incision site. 4 milliliters were utilized. A transverse incision was created over the A1 pacheco subcutaneous dissection was carried out bluntly. The A1 pacheco was identified and visualized. It was released with the dissection scissors longitudinally. The tourniquet was released. The wound was closed with horizontal mattress Prolene suture 3-0. A sterile bulky dressing was applied. The patient was brought to the recovery room in stable condition. There were no complications. Estimated Blood Loss 1 Complications No immediate complications Condition Stable Disposition Same day [facility] Billing Surgery - Charge Forward: Surgery Billing
[2022-10-16 08:55] VITALS: BP 159/86; PULSE 74; RESP 16; O2SAT 97
[2022-10-16 09:05] VITALS: BP 176/90; PULSE 73; RESP 16; O2SAT 97
[2022-10-16 09:15] VITALS: BP 154/84; PULSE 72; RESP 14; O2SAT 98
[2022-10-16] MEDS: BUPIVACAINE/EPINEPHRINE 0.25% 50 ML VIAL INFILTRATE (09:18)
[2022-10-16 09:23] VITALS: BP 140/72; PULSE 68; RESP 16; O2SAT 98
== END 2022-10-16 09:40 | disposition home or self-care (01) ==
PROVIDERS: PCP Nurse Practitioner; Visit Provider Orthopaedic Surgery
PROC: (CPT 26055; principal; 2022-10-16 09:00)
DX: M65.332 Trigger finger, left middle finger (principal)
CPT/HCPCS: 26055; A9270

== ENCOUNTER 2023-03-28 04:38 | Day surgery (SDC) | payer MEDICARE, SELFPAY ==
--- NOTE | 2023-03-25 15:08 | PC.NURSE ---
Report to the Outpatient Waiting Room, entrance under the green pavilion located off [facility], at time _1430 on date __03/28/23 . Planned Procedure Time: 1530 . Time changes happen often and if your time is changed the preop area will call you the afternoon before. - You and your visitor will be asked to self-screen and do not enter if you have any COVID symptoms. - A mask is optional within the hospital at this time. LIGHT BREAKFAST MORNING OF SURGERY Take the following medications with a SIP of water the morning of surgery: __ALL ROUTINE MEDICATIONS DO NOT STOP ANY OF YOUR OTHER PRESCRIPTION MEDICATIONS PRIOR TO SURGERY ?EXCEPT THE FOLLOWING Medications to discontinue per physician NONE Date to take last dose Please no make-up, nail kenyan, hairspray, perfume, deodorant, or body powder the day of surgery. No jewelry (including any body piercings) or valuables the day of surgery, leave them at home. Please take a shower or bath the night before, or the morning of, surgery with an antibacterial soap. Wear comfortable, loose fitting clothing. Children are encouraged to wear pajamas. - Jewelry must be removed prior to entering the operating room. Rings and piercings that are not removed may be cut off. - The hospital will not accept responsibility for valuables. - Please leave all valuables, including medications, at home the day of surgery. MAY DRIVE YOURSELF HOME If you are going home after surgery, a licensed limousine driver must drive you home. - NO public transportation without another adult if you receive anesthesia. - We recommend that an adult stay with you for 24 hours following discharge. - We also recommend that you do not drive, make important decision, drink alcoholic beverages, or take any drugs that were not prescribed by your health care provider for at least 24 hours after your discharge time. For Pediatric surgeries, we recommend two adults accompany the child home. Follow any additional instructions given to you from your surgeon. If you or anyone in your household have experienced Covid symptoms in the past week, please notify your surgeon or the nurse liaison at the phone number below for possible testing. Telephone instructions given to ____PATIENT and asked if any additional questions and then verbalized understanding. Patient advised to call surgeon office or pre surgery nurse liaison [phone] if any additional questions.
[2023-03-25 15:16] VITALS: BMI 22.2
[2023-03-28 12:37] VITALS: BP 145/87; PULSE 70; RESP 16; TEMP 36.6; O2SAT 99
--- NOTE | 2023-03-28 13:03 | WPDHPUPDATE1 ---
History and Physical Update Update Date/Time: 03/28/23 13:03 History and Physical has been reviewed, including an updated exam of the patient. There are NO changes in the patient's condition. Risks, benefits, and alternatives have been discussed and questions answered. Patient agrees to proceed with procedure.
[2023-03-28 13:15] VITALS: BP 162/89; PULSE 72; RESP 16; O2SAT 95
--- NOTE | 2023-03-28 13:15 | P.OP_ITS ---
Procedure Note - Detailed Date of Procedure 03/28/23 Pre-op Diagnosis Lt Carpal Tunnel Synd Post-op Diagnosis Same Procedure Performed Left Carpal tunnel release Surgeon Jadiel Bolivar MD Anesthesia Local Description of Procedure Operative details. After sedation was administer, the hand was prepped and d raped in the usual sterile fashion. The proposed incision was marked using typical anatomic landmarks. 10ML 0.5% Marcaine with epinephrine was injected along the incision line and at the distal forearm. The limb was exsanguinated and the tourniquet inflated to 250 millimeters of mercury. A longitudinal incision was taken sharply. Dissection was brought down to the transverse carpal ligament. Under direct vision the ligament was incised sharply. The proximal release was carried out with dissection scissors. The contents of the carpal canal were protected with a [place] elevator. The transverse carpal ligament was confirmed to be widely patent. The wound was closed with interrupted 3-0 Prolene suture. A sterile bulky dressing was placed. Patient was brought to the recovery room in stable condition. Estimated Blood Loss 1 Pathology None sent Complications No immediate complications Condition Stable Disposition PACU [facility] Billing Surgery - Charge Forward: Surgery Billing
[2023-03-28 13:25] VITALS: BP 161/93; PULSE 78; RESP 16; O2SAT 95
[2023-03-28] MEDS: BUPIVACAINE/EPINEPHRINE 0.5% 50 ML VIAL 10 ML INFILTRATE (13:29)
[2023-03-28 13:33] VITALS: BP 157/86; PULSE 78; RESP 16; O2SAT 95
[2023-03-28 13:44] VITALS: BP 153/77; PULSE 77; RESP 16; O2SAT 98
== END 2023-03-28 13:54 | disposition home or self-care (01) ==
PROVIDERS: PCP Nurse Practitioner; Visit Provider Orthopaedic Surgery
PROC: (CPT 64721; principal; 2023-03-28 15:30)
DX: G56.02 Carpal tunnel syndrome, left upper limb (principal)
CPT/HCPCS: 64721

== ENCOUNTER 2025-01-28 11:43 | Outpatient (CLI) | payer MEDICARE, SELFPAY ==
--- NOTE | ~2025-01-28 | XR_ITS ---
EXAMINATION: XR wrist RT min 3V, 01/28/2025 11:57 CDT HISTORY: M25.531 - Pain in right wrist COMPARISON: No comparisons available. Findings: No acute fracture or malalignment. No significant degenerative changes. Soft tissues unremarkable. Impression: No acute fracture or malalignment. Reviewed, dictated and finalized at location P. Impression: No acute fracture or malalignment.
--- OUTSIDE RECORDS SUMMARY | 2025-01-28 12:29 | XMS_ITS | Clinical Summary ---
Author Organization [facility] Address [facility] [place] [address] Care Team Providers Care Strainer Tender Name Role Phone Abdoulaye Tavares MD Primary Care Provider [phone] Allergies No known active allergies Medications No known medications Family History Medical History Relation Comments Heart Disease Father Relation Status Comments Father Mother Social History Tobacco Use Types Packs/Day Years Used Date Smoking Tobacco: Never Smokeless Tobacco: Never Alcohol Use Standard Drinks/Week Comments Yes 0 (1 standard drink = 0.6 oz pur e alcohol) Comments No Sex and Gender Information Value Date Recorded Sex Assigned at Not on file Legal Sex Female 5:54 PM UX MANAGER Gender Identity Not on file Sexual Orientation Not on file Last Filed Vital Signs Vital Sign Reading Time Taken Comments Blood Pressure - - Pulse - - Temperature - - Respiratory Rate - - Oxygen Saturation - - Inhaled Oxygen Concentration - - Weight 65.8 kg (145 lb) 05/07/2019 10:29 AM UX MANAGER Height 170.2 cm (5' 7) 05/07/2019 10:29 AM UX MANAGER Body Mass Index 22.71 05/07/2019 10:29 AM UX MANAGER Plan of Treatment Health Maintenance Due Date Last Done Comments Colorectal Cancer Screening Colonoscopy (10 Years) 1950 Hepatitis C 1969 DTaP, Tdap and Td Vaccines ( 1 - Tdap) 1970 Pneumococcal Vaccine: 50+ Ye ars (1 of 1 - PCV) 2001 Zoster Vaccines (1 of 2) 2001 Annual Medicare Wellness Visit 01/08/2016 Dexa Scan (General) 01/08/2016 Mammogram Screening 06/16/2021 06/17/2019 COVID-19 Vaccine (2023-2 5 season) 2024 Influenza Adult (#1) 2025 RSV Immunization or 60+ Years (1 - 1-dose 75+ series) 2026 Hepatitis A Vaccines Aged Out No long er eligible based on patient's age to complete this topic Meningococcal B Vaccine Aged Out No l onger eligible based on patient's age to complete this topic Meningococcal Vaccine Aged Out No sid lidia eligible based on patient's age to complete this topic RSV Immunizations Under 20 Months Aged Out No longer eligible based on patient's age to complete this topic Procedures Procedure Name Priority Date/Time Associated Diagnosis Comments MG SCREENING W KEVON KAREY DIGI Routine 06/17/2019 8:19 AM UX MANAGER Visit for screening mammogram from Last 3 Months or Most Recently Relevant to Health Maintenance Results * MG SCREENING W KEVON KAREY DIGI (06/17/2019 8:19 AM UX MANAGER) Anatomical Region Laterality Modality Breast Bilateral Mammography 06/18/2019 4:51 PM UX MANAGER Impressions 06/18/2019 4:52 PM UX MANAGER IMPRESSION: No suspicious change since the previous exams. Recommendation: 1: Routine screening mammogram Bilateral in 1 Year Assessment: ACR BI-RADS Category 2 - Benign. Interpreted By: Lakhwinder Michele, 06/18/2019 4:51 PM Narrative 06/18/2019 4:52 PM UX MANAGER Examination: Digital screening mammogram with CAD. Clinical history: Asymptomatic patient presents for routine screening. Comparison: 07/04/2014, 01/26/2013. Technique: Bilateral digital mammograms. The exam was interpreted with the use of a computer-aided detection (CAD) system. Additional 3-D tomosynthesis images were acquired. Tissue density: The breast tissue contains scattered fibroglandular densities. Findings: The breast tissue contains scattered fibroglandular densities. Benign-appearing calcification noted. No suspicious mass, microcalcification or area of architectural distortion can be identified. From a mammographic standpoint, routine followup in one year would seem adequate. us Kate TORRES MAMMO Final Resul t from Last 3 Months or Most Recently Relevant to Health Maintenance Insurance MEDICARE [facility] Care Teams Strainer Tender Relationship Specialty Start Date End Date Abdoulaye Tavares MD [address] [place] [id number] PCP - General FAMILY PRACTICE 10/03/22
--- OUTSIDE RECORDS SUMMARY | 2025-01-28 12:29 | XMS_ITS | Clinical Summary ---
Author Organization [facility] Address [address] [place] [address] Care Team Providers Care Arc Welder Apprentice Name Role Phone Ariel Hoyos MD Primary Care Provider [phone] Allergies No known active allergies Medications lisinopriL (PRINIVIL,ZESTRIL) 20 mg tablet 10/01/2019 Active Active Problems No known active problems Surgical History Surgery Date Site/Laterality Comments KNEE SURGERY cyst removal Medical History Medical History Date Comments Hypertension Hypercholesteremia Osteoarthritis Family History Medical History Relation Name Comments Heart disease Other Relation Name Status Comments Other Social History Tobacco Use Types Packs/Day Years Used Date Smoking Tobacco: Never Smokeless Tobacco: Never Alcohol Use Standard Drinks/Week Comments Yes 0 (1 standard drink = 0.6 oz pur e alcohol) Personal Safety Answer Date Recorded Getting School Help Needed Not on file 06/28 Comments Unknown Sex and Gender Information Value Date Recorded Sex Assigned at Not on file Legal Sex Female 10:09 AM CDT Gender Identity Not on file Sexual Orientation Not on file Obstetrics History Last Filed Vital Signs Vital Sign Reading Time Taken Comments Blood Pressure 148/90 11/18/2019 10:23 AM CDT Pulse 71 11/18/2019 10:23 AM CDT Temperature 36.3 C (97.3 F) 11/18/2019 10:23 AM CDT Respiratory Rate - - Oxygen Saturation - - Inhaled Oxygen Concentration - - Weight 65.6 kg (144 lb 9.6 oz) 11/18/2019 10:23 AM CDT Height 172.7 cm (5' 8) 11/18/2019 10:23 AM CDT Body Mass Index 21.99 11/18/2019 10:23 AM CDT Plan of Treatment Not on file Insurance [employer] MEDICARE Care Teams Arc Welder Apprentice Relationship Specialty [place] [address] [place], [place] [address] [address] PCP - General Family Medicine 11/09/19
== END 2025-01-28 11:44 | disposition home or self-care (01) ==
PROVIDERS: PCP Nurse Practitioner; Visit Provider Orthopaedic Surgery
DX: M25.531 Pain in right wrist (principal)
CPT/HCPCS: 73110